=== PATIENT | male | born 1930 | race Two or more races ===

== ENCOUNTER 2018-09-06 06:08 | Emergency (ER) | payer OTHER, MEDICAID ==
[~2018-09-06] VITALS: Ht 172.7 cm; Wt 66.2 kg
[2018-09-06 06:16] VITALS: Ht 172.7 cm; Wt 66.2 kg
[2018-09-06 07:12] LABS: microscopic required? NO
[2018-09-06 07:29] LABS: BASOPHIL % 0.6 % (0-2); PLATELET COUNT 164 x10^3mcL (130-400); RED CELL DISTRIBUTION WIDTH 12.6 % (11.5-14.5)
[2018-09-06 07:44] LABS: CALCIUM 9.2 mg/dL (8.5-10.1); CARBON DIOXIDE 22.8 mmol/L (21-32); CHLORIDE SERUM 109 mmol/L (98-107); CREATININE SERUM 1.3 mg/dL (0.7-1.3); GLUCOSE SERUM 107 mg/dL (74-106); POTASSIUM SERUM 4.1 mmol/L (3.5-5.1); SODIUM SERUM 143 mmol/L (136-145)
[2018-09-06 08:00] LABS: ALBUMIN 3.5 g/dL (3.4-5.0); ALKALINE PHOSPHATASE 45 U/L (46-116); ALT/SGPT 40 U/L (16-63); AST/SGOT 21 U/L (15-37); BILIRUBIN TOTAL 1.24 mg/dL (0.20-1.00); LIPASE 334 IU/L (73-393); TOTAL PROTEIN, SERUM 6.6 g/dL (6.4-8.2)
[2018-09-06 08:07] LABS: UA SPECIFIC GRAVITY 1.025 (1.005-1.035); urine erythrocyte NEGATIVE (NEGATIVE)
[2018-09-06 09:33] VITALS: BP 124/77
== END 2018-09-06 09:33 | disposition home or self-care (01) ==
LOC: ED 06:08
PROVIDERS: Emergency Medicine
DX: E86.0 Dehydration (principal); R53.1 Weakness; R19.7 Diarrhea, unspecified; I10 Essential (primary) hypertension; E78.00 Pure hypercholesterolemia, unspecified; Z85.46 Personal history of malignant neoplasm of prostate
CPT/HCPCS: 87046; 87046-59; J7030

== ENCOUNTER 2019-03-02 11:47 | Emergency (ER) | payer OTHER, MEDICAID ==
[~2019-03-02] VITALS: Ht 172.7 cm; Wt 63.5 kg
[2019-03-02 12:32] LABS: BASOPHIL % 0.6 % (0-2); PLATELET COUNT 144 x10^3mcL (130-400)
[2019-03-02 13:02] LABS: CALCIUM 8.6 mg/dL (8.5-10.1); CARBON DIOXIDE 26.6 mmol/L (21-32); CHLORIDE SERUM 105 mmol/L (98-107); CREATININE SERUM 1.3 mg/dL (0.7-1.3); GLUCOSE SERUM 97 mg/dL (74-106); POTASSIUM SERUM 4.1 mmol/L (3.5-5.1); SODIUM SERUM 140 mmol/L (136-145)
[2019-03-02 13:06] LABS: ALBUMIN 3.5 g/dL (3.4-5.0); ALKALINE PHOSPHATASE 57 U/L (46-116); ALT/SGPT 55 U/L (16-63); AST/SGOT 21 U/L (15-37); BILIRUBIN TOTAL 1.1 mg/dL (0.20-1.00); LIPASE 196 IU/L (73-393); TOTAL PROTEIN, SERUM 6.9 g/dL (6.4-8.2)
[2019-03-02 13:21] LABS: UA SPECIFIC GRAVITY >=1.030 (1.005-1.035); microscopic required? YES; urine erythrocyte TRACE (NEGATIVE)
[2019-03-02 14:38] VITALS: BP 128/73
== END 2019-03-02 14:38 | disposition home or self-care (01) ==
LOC: ED 11:47
PROVIDERS: Emergency Medicine
DX: R19.7 Diarrhea, unspecified (principal); R53.1 Weakness; I10 Essential (primary) hypertension; E78.00 Pure hypercholesterolemia, unspecified; Z98.890 Other specified postprocedural states
CPT/HCPCS: 87046; 87046-59; J7030